=== PATIENT | female | born 1985 | race Caucasian/White ===

== ENCOUNTER 2016-08-29 10:59 | Emergency (ER) | payer OTHER ==
[~2016-08-29] VITALS: Ht 162.6 cm; Wt 72.1 kg
[2016-08-29 11:27] VITALS: BP 151/79
--- NOTE | 2016-08-29 11:34 | NUR ---
Patient ambulated to bed 7.
--- NOTE | 2016-08-29 11:35 | NUR ---
PATIENT PRESENTS TO ED WITH C/O CHEST PAIN 8/10 RADIATING TO LEFT ARM ON AND OFF STARTED AT 4 AM ,WITH NAUSEA AND DIZZY,PT WITH HX OF ANXIETY; DENIES V/D; SKIN IS PINK/WARM/DRY; AAOX4 WITH EVEN AND STEADY GAIT; LUNGS CLEAR BL; HR EVEN AND REGULAR; PT DENIES ANY FEVER, CP, SOB, OR COUGH AT THIS TIME; PATIENT STATES PAIN OF 8/10 AT THIS TIME; VSS; PATIENT POSITIONED FOR COMFORT; HOB ELEVATED; BEDRAILS UP X2; BED DOWN. ER MD MADE AWARE OF PT STATUS.
--- NOTE | 2016-08-29 11:45 | NUR ---
DR FREGOSO AT BEDSIDE ASSESSING AAO PT
--- NOTE | 2016-08-29 11:53 | NUR ---
[facility] PT TAKEN TO XRAY VIA WHEEL CHAIR BY KATERIN DILEEP
[2016-08-29] MEDS ORDERED: KETOROLAC 30 MG/ML VIAL IVP ONE (11:55)
[2016-08-29 13:52] VITALS: BP 121/73
== END 2016-08-29 13:52 | disposition home or self-care (01) ==
LOC: MED 10:59
DX: R07.89 Other chest pain (principal); R11.2 Nausea with vomiting, unspecified; E11.9 Type 2 diabetes mellitus without complications
CPT/HCPCS: 36415; 71020; 84484; 85379; J1885; 96374; 99285